=== PATIENT | male | born 1945 | race Caucasian/White ===

== ENCOUNTER 2021-12-01 14:50 | Emergency (ER) | payer OTHER ==
[2021-12-01 15:58] LABS: HEMOGLOBIN 12.3 gm/dl (14.0-17.5); RED BLOOD COUNT 3.79 M/UL (4.20-5.50); WHITE BLOOD COUNT 5.5 K/UL (4.5-11.0)
== END 2021-12-01 19:03 | disposition home or self-care (01) ==
LOC: ER1 14:50
PROVIDERS: Emergency Medicine
DX: N17.9 Acute kidney failure, unspecified (principal); E86.0 Dehydration; E87.6 Hypokalemia
CPT/HCPCS: 71045; 80048; 80053; 81001; 83605; 83735; 85025; 87040; 99284